=== PATIENT | male | born 1945 | race Caucasian/White ===

== ENCOUNTER 2016-10-23 21:13 | Emergency (ER) | payer BC ==
--- NOTE | 2016-10-23 22:09 | EDM.PDOC ---
ED HPI GENERAL MEDICAL PROBLEM - General Chief Complaint: Genitourinary Problem Stated Complaint: BLOOD IN URINE Time Seen by Provider: 10/23/16 22:05 Source of Information: Reports: Patient History Limitations: Reports: No Limitations - History of Present Illness INITIAL COMMENTS - FREE TEXT/NARRATIVE: pt arrived with a 2 day history of urinary frequency. He had burning when he vioided tonite. He feels like he is not emptying his bladder for the past 2 days. Onset: Gradual Duration: Hour(s): Associated Symptoms: Reports: Other (pain in lower abdoman and frequent urination) Right flank Pain Score (Numeric/FACES): 4 - Related Data Allergies Allergy/AdvReac Type Severity Reaction Status Date / Time No Known Allergies Allergy Verified 10/23/16 21:54 Home Meds: Home Meds Atenolol 50 mg PO DAILY 10/23/16 [History] Latanoprost [Xalatan 0.005% Ophth Soln] 2.5 ml EYEBOTH BEDTIME 10/23/16 [History ] Lisinopril 25 mg PO DAILY 10/23/16 [History] PARoxetine [Paxil CR] 25 mg PO DAILY 10/23/16 [History] ED ROS GENERAL - Review of Systems Review Of Systems: See Below Constitutional: Reports: No Symptoms HEENT: Reports: No Symptoms Respiratory: Reports: No Symptoms Cardiovascular: Reports: No Symptoms Endocrine: Reports: No Symptoms GI/Abdominal: Reports: No Symptoms : Reports: Dysuria, Hematuria Musculoskeletal: Reports: No Symptoms Skin: Reports: No Symptoms ED EXAM, RENAL/ - Physical Exam Exam: See Below Text/Narrative:: pt arrived with a history of passing blood in the urine. He has had some frequebcy and burning on urination. Exam Limited By: No Limitations General Appearance: Alert, Mild Distress Ears: Normal TMs Nose: Normal Inspection Throat/Mouth: Normal Inspection Head: Atraumatic Neck: Normal Inspection Respiratory/Chest: No Respiratory Distress Cardiovascular: Regular Rate, Rhythm GI/Abdominal: Soft, Non-Tender, Other (pt had a bladder scan and he had 48 cc in the bladder. His urine reveals the rbcs but does not show alot of wbcs or bacteria.) Rectal (Males) Exam: Deferred Back Exam: Normal Inspection Extremities: Normal Inspection Neurological: Alert, Oriented, Normal Cognition Course - Vital Signs Last Recorded V/S: Last Vital Signs Temp 36.1 C 10/23/16 23:38 Pulse 49 L 10/23/16 23:38 Resp 18 10/23/16 23:38 BP 156/74 H 10/23/16 23:38 Pulse Ox 94 L 10/23/16 23:38 - Orders/Labs/Meds Orders: Active Orders 24 hr Category Date Time Status Abdomen Pelvis wo Cont [CT] Stat Exams 10/23/16 22:59 Taken CULTURE URINE [RM] Stat Lab 10/23/16 22:00 Received Labs: Laboratory Tests 10/23/16 10/23/16 10/23/16 Range/Units 20:15 20:15 22:05 WBC 6.3 (4.5-11.0) K/uL RBC 4.74 (4.30-5.90) M/uL Hgb 14.3 (12.0-15.0) g/dL Hct 41.8 (40.0-54.0) % MCV 88 (80-98) fL MCH 30 (27-31) pg MCHC 34 (32-36) % Plt Count 201 (150-400) K/uL Neut % (Auto) 49 (36-66) % Lymph % (Auto) 30 (24-44) % [place] % (Auto) 15 H (2-6) % Eos % (Auto) 6 H (2-4) % Baso % (Auto) 1 (0-1) % Sodium 141 (140-148) mmol/L Potassium 4.0 (3.6-5.2) mmol/L Chloride 106 (100-108) mmol/L Carbon Dioxide 26 (21-32) mmol/L Anion Gap 9.3 (5.0-14.0) mmol/L BUN 19 H (7-18) mg/dL Creatinine 1.5 H (0.8-1.3) mg/dL Est Cr Clr Drug Dosing 44.97 mL/min Estimated GFR (MDRD) 46 L (>60) Glucose 105 (74-106) mg/dL Calcium 8.3 L (8.5-10.1) mg/dL Total Bilirubin 0.6 (0.2-1.0) mg/dL AST 30 (15-37) U/L ALT 39 (12-78) U/L Alkaline Phosphatase 110 (46-116) U/L Total Protein 6.6 (6.4-8.2) g/dL Albumin 3.4 (3.4-5.0) g/dL Globulin 3.2 (2.3-3.5) g/dL Albumin/Globulin Ratio 1.1 L (1.2-2.2) Urine Color Brown Urine Appearance Cloudy Urine pH 5.0 (4.5-8.0) Ur Specific [place] 1.020 (1.008-1.030) Urine Protein Negative (NEGATIVE) mg/dL Urine Glucose (UA) Normal (NEGATIVE) mg/dL Urine Ketones Negative (NEGATIVE) mg/dL Urine Occult Blood Large (NEGATIVE) Urine Nitrite Negative (NEGAITVE) Urine Bilirubin Negative (NEGATIVE) Urine Urobilinogen 1 (NORMAL) mg/dL Ur Leukocyte Esterase Negative (NEGATIVE) Urine RBC 20-30 H (0-5) Urine WBC 0-5 (0-5) Ur Epithelial Cells Moderate Amorphous Sediment Moderate Urine Bacteria Few Urine Mucus Few Meds: Medications Discontinued Medications Generic Name Dose Route Start Last Admin Trade Name Betty PRN Reason Stop Dose Admin Sodium Chloride 1,000 mls @ 999 mls/hr 10/23/16 23:00 10/23/16 23:11 Normal Saline IV 999 mls/hr ASDIRECTED NADYA Administration Levofloxacin/Dextrose 500 mg/ 100 mls @ 100 mls/hr 10/24/16 00:01 10/24/16 00 :19 Premix IV 10/24/16 01:00 100 mls/hr ONETIME ONE Administration - Re-Assessments/Exams Free Text/Narrative Re-Assessment/Exam: 10/24/16 00:06 ua reveals a fair number of rbcs and not alot of wbcs and bacteria, a culture was set up. Because of the hematuria a cat scan without contrast was done which was neg foer any kidney lesions. He will be started on cipro. Departure - Departure Time of Disposition: 23:35 Disposition: Home, Self-Care 01 Condition: Fair Clinical Impression: UTI (urinary tract infection), Hematuria - Discharge Information Instructions: Urinary Tract Infection, Adult, [id number], Hematuria, Adult Referrals: PCP,None [Primary Care Provider] - Forms: ED Department Discharge Care Plan Goals: push fluids, cipro 500mg bid. send a copy of his labs and the cat scan report. See regular dr in the next week to 10 days. - My Orders Last 24 Hours: My Active Orders 10/23/16 22:00 CULTURE URINE [RM] Stat 10/23/16 22:59 Abdomen Pelvis wo Cont [CT] Stat - Assessment/Plan Last 24 Hours: My Active Orders 10/23/16 22:00 CULTURE URINE [RM] Stat 10/23/16 22:59 Abdomen Pelvis wo Cont [CT] Stat
[2016-10-23] MEDS ORDERED: Sodium Chloride 0.9% 1,000 ML IV SCH (23:00)
[2016-10-23 23:45] VITALS: BP 156/74
[2016-10-24] MEDS ORDERED: Levofloxacin/Dextrose 5%-Water 500 MG in Premix Bag 1 BAG IV ONE (00:01)
== END 2016-10-24 01:38 | disposition home or self-care (01) ==
LOC: JP.ED 21:13
DX: N39.0 Urinary tract infection, site not specified (principal); R31.9 Hematuria, unspecified; Z79.899 Other long term (current) drug therapy
CPT/HCPCS: 36415; 74176; 80053; 81001; 85025; 87086; 96361; 96365; 99284; J1956; J7040